=== PATIENT | female | born 1995 | race Caucasian/White ===

== ENCOUNTER 2016-10-28 21:38 | Emergency (ER) | payer OTHER ==
[~2016-10-28] VITALS: Ht 165.1 cm; Wt 95.2 kg
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
[~2016-10-28 21:38] MED LIST: ACETAMINOPHEN; ACETAMINOPHEN PO; AMOXICILLIN PO; AMOXICILLIN500 M1 PO; AUGMENTIN PO; BACTRIM DS TABL1 TA1 PO; HYCODAN60 ML 5MG/ PO; HYDROCODON-ACE1 EAC7 PO; IBUPROFEN PO; IBUPROFEN800 MG PO; MOTRIN600 M1 PO; NO MEDICATIONS; NORCO1 TAB 10/3 PO; PANTOPRAZOLE SO40 MG PO; PEPCID AC20 M2 PO; PHENERGAN12.5 MG PO; PHENERGAN25 M1 PO; PHENERGAN25 MG PO; PREDNISONE50 MG PO; PRILOSEC; PRILOSEC20 M1 PO; ROBITUSSIN AC; SUDAFED30 M1 PO; THORAZINE25 MG PO; VISTARIL PO; VOLTAREN75 MG PO; ZITHROMAX PO; ZOFRAN ODT4 MG PO; ZOFRAN PO; ZYRTEC PO
[2016-10-28] MEDS ORDERED: PHENERGAN25 M1 PO (22:05)
[2016-10-28] MEDS ORDERED: PRILOSEC PO (22:05)
[2016-10-28] MEDS ORDERED: ERYTHROMYCIN500 MG PO (22:05)
[2016-10-28] MEDS ORDERED: GABAPENTIN300 M2 PO (22:06)
[2016-10-28 23:32] LABS: URINE SOURCE CLEAN CATCH
[2016-10-28 23:33] LABS: BASOPHIL# 0.1 X10e3 (0-0.3); BASOPHIL% 0.5 % (0-2.5); EOSINOPHIL# 0.1 X10e3 (0-0.7); EOSINOPHIL% 0.3 % (0.0-7.0); HEMATOCRIT 40.1 % (35.0-45.0); HEMOGLOBIN 13.2 gm/dL (12.0-16.0); LYMPHOCYTE# 2.9 X10e3 (1.0-3.5); LYMPHOCYTE% 14.1 % (17.0-45.0); MEAN CELL VOLUME 76.6 FL (83-96); MEAN CORPUSCULAR HEMOGLOBIN 25.1 PG (28-34); MEAN CORPUSCULAR HGB CONC 32.8 g/dL (30-36); MEAN PLATELET VOLUME 7.5 FL (6.5-11.5); MONOCYTE# 1.1 X10e3 (0-1.0); MONOCYTE% 5.6 % (3.0-12.0); NEUTROPHIL# 16.1 X10e3 (1.5-7.1); NEUTROPHIL% 79.5 % (40-75); PLATELET COUNT 394 X10e3 (140-420); RED BLOOD COUNT 5.24 X10e (3.90-5.30); RED CELL DISTRIBUTION WIDTH 15.1 % (11.0-15.5); WHITE BLOOD COUNT 20.3 X10e3 (4.0-10.5)
[2016-10-28 23:34] LABS: DIFF IND NO
[2016-10-28 23:35] LABS: URINE APPEARANCE CLEAR; URINE BILIRUBIN NEG (NEG); URINE BLOOD TRACE-INTACT (NEG); URINE COLOR YELLOW; URINE GLUCOSE NEG (NORM); URINE KETONE NEG (NEG); URINE LEUKOCYTE ESTERASE NEG (NEG); URINE NITRATE NEG (NEG); URINE PH 5.5 (5-8); URINE PROTEIN NEG (NEG); URINE SPECIFIC GRAVITY >=1.030 (1.003-1.035); URINE UROBILINOGEN 0.2 MG/DL (NORM)
[2016-10-28 23:36] LABS: MICRO INDICATED? YES
[2016-10-28 23:37] LABS: URINE BACTERIA NEG (NEG); URINE WBC 0-2 /[HPF] (0-5)
[2016-10-28 23:38] LABS: URINE MUCUS PRESENT; URINE SQUAMOUS EPITHELIAL CELL OCCAS /[HPF]; URINE TRANSITIONAL EPI CELLS FEW /[HPF]
[2016-10-28 23:50] LABS: ALBUMIN SERUM 4.6 g/dL (3.5-5.0); BILIRUBIN,TOTAL 0.4 mg/dL (0.2-2.0); BUN/CREATININE RATIO 12.5; CALCIUM SERUM 9.4 mg/dL (8.4-10.2); CREATININE SERUM 0.8 mg/dL (0.6-1.4); GLOM FILT RATE Estimated 105.5 mL/min (>60); POTASSIUM 3.3 mmol/L (3.5-5.1); PROTEIN TOTAL SERUM 8.7 g/dL (6.0-8.3)
[2016-10-29] MEDS ORDERED: FLEXERIL10 MG PO (02:22)
[2016-10-29] MEDS ORDERED: DICLOFENAC PO (02:22)
[2016-10-29] MEDS ORDERED: ZOFRAN ODT4 M1 SL (02:23)
== END 2016-10-29 02:26 | disposition home or self-care (01) ==
LOC: SED 21:38
PROVIDERS: Physician Assistant
DX: S39.012A Strain of muscle, fascia and tendon of lower back, initial encounter (principal); S30.1XXA Contusion of abdominal wall, initial encounter; V43.52XA Car driver injured in collision with other type car in traffic accident, initial encounter; Y93.89 Activity, other specified; Y92.410 Unspecified street and highway as the place of occurrence of the external cause
CPT/HCPCS: 36415; 70450; 72100; 74177; 80053; 81003; 83690; 84703; 85025; 96361; 96374; 99284; J2550; Q9967

== ENCOUNTER 2016-12-03 19:18 | Emergency (ER) | payer OTHER ==
[~2016-12-03] VITALS: Ht 165.1 cm; Wt 95.2 kg
[~2016-12-03 19:18] MED LIST changes: +DICLOFENAC PO; +ERYTHROMYCIN500 MG PO; +FLEXERIL10 MG PO; +GABAPENTIN300 M2 PO; +PRILOSEC PO; +ZOFRAN ODT4 M1 SL
[2016-12-03 21:51] LABS: BASOPHIL# 0.1 X10e3 (0-0.3); BASOPHIL% 0.4 % (0-2.5); EOSINOPHIL# 0.1 X10e3 (0-0.7); EOSINOPHIL% 0.8 % (0.0-7.0); HEMATOCRIT 37.9 % (35.0-45.0); HEMOGLOBIN 12.5 gm/dL (12.0-16.0); LYMPHOCYTE# 2.4 X10e3 (1.0-3.5); LYMPHOCYTE% 16.2 % (17.0-45.0); MEAN CELL VOLUME 77.3 FL (83-96); MEAN CORPUSCULAR HEMOGLOBIN 25.5 PG (28-34); MEAN PLATELET VOLUME 7.7 FL (6.5-11.5); MONOCYTE# 0.9 X10e3 (0-1.0); MONOCYTE% 6.3 % (3.0-12.0); NEUTROPHIL# 11.3 X10e3 (1.5-7.1); NEUTROPHIL% 76.3 % (40-75); PLATELET COUNT 308 X10e3 (140-420); RED CELL DISTRIBUTION WIDTH 14.7 % (11.0-15.5); WHITE BLOOD COUNT 14.8 X10e3 (4.0-10.5)
[2016-12-03 21:55] LABS: DIFF IND NO
[2016-12-03 22:09] LABS: ALBUMIN SERUM 4.1 g/dL (3.5-5.0); BILIRUBIN, DIRECT 0.1 mg/dL (0.0-0.2); BILIRUBIN,INDIRECT 0.2 mg/dL (0.0-0.9); BILIRUBIN,TOTAL 0.3 mg/dL (0.2-2.0); BUN/CREATININE RATIO 14.28; CALCIUM SERUM 9.1 mg/dL (8.4-10.2); CREATININE SERUM 0.7 mg/dL (0.6-1.4); GLOM FILT RATE Estimated 123.9 mL/min (>60); POTASSIUM 3.4 mmol/L (3.5-5.1); PROTEIN TOTAL SERUM 7.8 g/dL (6.0-8.3)
== END 2016-12-03 22:34 | disposition home or self-care (01) ==
LOC: SED 19:18
PROVIDERS: Physician Assistant
DX: N61.1 Abscess of the breast and nipple (principal); Z98.890 Other specified postprocedural states; Z79.899 Other long term (current) drug therapy
CPT/HCPCS: 36415; 80048; 80076; 84703; 85025; 96365; 96375; 99283; J2270; J2405